=== PATIENT | female | born 1995 | race Hispanic/Latino ===

== ENCOUNTER 2023-02-10 14:50 | Emergency (ER) | payer SELFPAY ==
[2023-02-10 17:03] LABS: Bilirubin Negative (Negative); Blood, Urine 3+ (Negative); Clarity Extra Turbid (Clear); Glucose, Urine (Dipstick) Normal (Negative); Ketone, Urine 20 mg/dL (Negative); Leukocyte 500 Leu/uL (Negative); Nitrite 2+ (Negative); Protein, Urine (Dipstick) 100 mg/dL (Neg-Trace); Specific Gravity, Urine 1.016 (1.002-1.036); Urobilinogen Normal mg/dL (Less than 2); pH, Urine 6.5 (5.0-9.0)
[2023-02-10 17:13] LABS: CAUTI Indications for Culture Acute Hematuria; Pregnancy Test - Urine (BHCG) Negative (Negative); Pregu Control Background? CLEAR/WHITE (CLR/WHITE); Pregu Control Bar Appear? YES (CONTROL BAR); Specific Gravity 1.016 (1.002-1.036)
[2023-02-10 17:14] LABS: Bacteria/HPF 2+ HPF (None Seen)
[2023-02-10 17:15] LABS: Urine Culture Reflex Yes Yes
[2023-02-10 17:27] LABS: SARS-CoV-2 NAA Rapid Test Not Detected (NotDetected)
== END 2023-02-10 18:13 | disposition home or self-care (01) ==
LOC: ERS 14:50
DX: N39.0 Urinary tract infection, site not specified (principal); Z20.822 Contact with and (suspected) exposure to COVID-19
CPT/HCPCS: 81001; 81025; 87077; 87086; 87186; 99283